=== PATIENT | male | born 1980 | race African-American/Black ===

== ENCOUNTER 2025-01-01 15:21 | Inpatient (IN) | payer OTHER, SELFPAY ==
[2025-01-01] VITALS (9 sets, daily range): BP systolic 132–206; BP diastolic 84–129; PULSE 87–93; RESP 16–19; TEMP 36.9–37.1; O2SAT 94–98; BMI 39.5
--- OUTSIDE RECORDS SUMMARY | 2025-01-01 15:27 | XMS_ITS | Clinical Summary ---
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 Gender Identity Not on file Sexual Orientation Not on file Last Filed Vital Signs Vital Sign Reading Time Taken Comments Blood Pressure 138/75 12/02/2009 5:40 PM CDT Pulse 104 12/02/2009 5:40 PM CDT Temperature 36.2 C (97.2 F) 12/02/2009 5:40 PM CDT Respiratory Rate 18 12/02/2009 5:40 PM CDT Oxygen Saturation 100% 12/02/2009 5:40 PM CDT Inhaled Oxygen Concentration - - Weight 99.8 kg (220 lb) 12/02/2009 5:41 PM CDT Height 185.4 cm (6' 1 ) 12/02/2009 5:41 PM CDT Body Mass Index 29.03 12/02/2009 5:41 PM CDT Plan of Treatment Health Maintenance Due Date Last Done Comments CT Colonography 1979 FIT Test 1979 FIT-DNA Test 1979 FLEXIBLE SIGMOIDOSCOPY 1979 HEPATITIS C SCREENING 1979 TDAP/TD VACCINE (1 - Tdap) 10/29/1990 DEPRESSION SCREENING 1991 HIV SCREENING 10/29/1994 DIABETES SCREENING 03/29/2014 COLONOSCOPY 10/29/2024 COLORECTAL CANCER SCREENING 10/29/2024 COVID-19 VACCINE (1 - 2023-2 5 season) 2024 INFLUENZA VACCINE (#1) 2024 ZOSTER SERIES VACCINE (1 of 2) 10/29/2029 Adult RSV VACCINE (1 - 1-dos e 75+ series) 10/29/2054 Pneumococcal Vaccine: Childh ood and At-Risk Adult <65 yo Series Aged Out No longer el igible based on patient's age to complete this topic Care Teams Pharmacy Cashier Relationship Specialty Start Date End Date No, Pcp PCP - General 12/02/09 Ayala Salazar R.N. 01/10/10
--- OUTSIDE RECORDS SUMMARY | 2025-01-01 15:27 | XMS_ITS | Clinical Summary ---
Author Organization [facility] Address [address] [place] [id number] Care Team Providers Care Metabolic Specialist Name Role Phone Unavailable Primary Care Provider Unavailabl e Allergies No known active allergies Medications No known medications Medical History Medical History Date Comments Essential (primary) hypertension Social History Tobacco Use Types Packs/Day Years Used Date Smoking Tobacco: Never Smokeless Tobacco: Never Tobacco Cessation:Counseling Given: Not Answered Alcohol Use Standard Drinks/Week Comments Not Currently 0 (1 standard drink = 0.6 oz pur e alcohol) Inadequate Housing Answer Date Recorded Social Determinants: Housing (Overall Score Help er) 0 06/30/2023 Sex and Gender Information Value Date Recorded Sex Assigned at Not on file Legal Sex Male 6:56 AM CDT Gender Identity Not on file Sexual Orientation Not on file Obstetrics History Last Filed Vital Signs Vital Sign Reading Time Taken Comments Blood Pressure 173/124 06/30/2023 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 Pulse 95 06/30/2023 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 Temperature 36.4 C (97.6 F) 06/30/2023 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 Respiratory Rate 18 06/30/2023 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 Oxygen Saturation 100% 06/30/2023 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 Inhaled Oxygen Concentration - - Weight - - Height - - Body Mass Index - - Plan of Treatment Health Maintenance Due Date Last Done Comments A1c for Diabetes Screening 1979 Depression Screening 1991 Varicella Vaccine (1 of 2 - 13+ 2-dose series) 10/29/1992 Hepatitis B Vaccine (1 of 3 - 19+ 3-dose series) 10/29/1998 CT Colonography 10/29/2024 Cologuard 10/29/2024 Colonoscopy 10/29/2024 Colorectal Cancer Screening 10/29/2024 Fecal Occult Blood 10/29/2024 Sigmoidoscopy 10/29/2024 COVID-19 Vaccine (2023-25 season) 2024 Influenza Vaccine (#1) 2024 DTaP/Tdap/Td Vaccine (4 - Td or Tdap) 08/29/2025 08/30/2015, 12/02/2009, 12/02/2009, Additional history exists HPV Vaccine (No Doses Required) Completed Hepatitis A Vaccine Aged Out No longe r eligible based on patient's age to complete this topic Meningococcal Serogroup B Vaccine Aged Out No longer eligible based on patient's age to complete this topic Meningococcal Vaccine Aged Out No odette cait eligible based on patient's age to complete this topic Pneumococcal Vaccine 0-49 Aged Out No longer eligible based on patient's age to complete this topic Insurance [facility] Member Subscriber Plan / Payer (Ef fective 2023-Present) Name:Sobeida Ceja Relation to Subscriber:Self Name:Sobeida Ceja Payer ID:Not on file Group ID:Not on file Type:[id number] HMO Address: [address] [address]
--- OUTSIDE RECORDS SUMMARY | 2025-01-01 15:27 | XMS_ITS | Encounter Summary ---
Author Organization [facility] Address [address] [place] [address] Care Team Providers Care Intern Product Marketing Manager Name Role Phone No, Pcp Primary Care Provider Unavailabl e Ayala Salazar R.N. 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 01/10/10 documented as of this encounter
--- NOTE | 2025-01-01 15:42 | XR_ITS ---
WS: [id number] Portable AP upright chest, 01/01/2025 Clinical Data: hypertension Comparison: None. Findings: No nodules, masses or effusions are seen. The heart is normal. The pulmonary vascularity is not increased. No pneumonia or pneumothorax is seen. XR/XR chest 1V portable [id number] Impression: Negative chest.
--- NOTE | 2025-01-01 15:42 | ECG_ITS ---
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 Measurements Intervals [place] Rate: 92 P: 69 ME: 195 QRS: 18 QRSD: 93 T: 38 QT: 351 QTc: 435 Interpretive Statements SINUS RHYTHM NONSPECIFIC T-WAVE ABNORMALITY No previous ECG available for comparison Electronically Signed On 01-01-2025 20:16:54 CDT by Mateo Douglas M.D. [id number]
--- NOTE | 2025-01-01 15:50 | W.ED.GENADLT ---
HPI - General Adult General: Chief complaint: General Medical Stated complaint: hypertension Time Seen by Provider: 01/01/25 15:26 History of Present Illness: 44-year-old man with a history of hypertension who presents emergency room by ambulance from clinic with accelerated hypertension. Says he is been having a toothache that caused a headache that caused his blood pressure to go up. He says when this happens his blood pressure usually goes up. They checked his blood pressure 5 times and it was over 200 at the clinic so they called an ambulance. No focal motor deficits. No altered mental status. No chest pain. There was up last night and he took extra of his blood pressure meds with no results. Related Data Allergies Allergy/AdvReac Type Severity Reaction Status Date / Time No Known Allergies Allergy Verified 01/01/25 15:29 Review of Systems Narrative: Constitutional symptoms: Negative except as documented in HPI. Skin symptoms: Negative except as documented in HPI. Eye symptoms: Negative except as documented in HPI. ENMT symptoms: Negative except as documented in HPI. Respiratory symptoms: Negative except as documented in HPI. Cardiovascular symptoms: Negative except as documented in HPI. Gastrointestinal symptoms: Negative except as documented in HPI. Genitourinary symptoms: Negative except as documented in HPI. Musculoskeletal symptoms: Negative except as documented in HPI. Neurologic symptoms: Negative except as documented in HPI. Psychiatric symptoms: Negative except as documented in HPI. Endocrine symptoms: Negative except as documented in HPI. Physical Exam Narrative: EXAM NARRATIVE: General: Alert, no acute distress. Skin: Warm, dry. Head: Normocephalic, atraumatic. Neck: Supple, trachea midline. Eye: Extraocular movements are intact. Ears, nose, mouth and throat: mucosa moist. Poor dentition. Multiple dental caries. Cardiovascular: Regular, Normal peripheral perfusion. Respiratory: Lungs are clear to auscultation, respirations are non-labored, breath sounds are equal, Symmetrical chest wall expansion. Gastrointestinal: Soft, Nontender, Non distended Musculoskeletal: Normal ROM, no deformity. Neurological: Alert and oriented, No focal neurological deficit observed. Psychiatric: Cooperative, appropriate mood & affect. Course Vital Signs: Vital signs: Vital Signs Temperature 98.7 F 01/01/25 15:20 Pulse Rate 90 01/01/25 15:20 Respiratory Rate 16 01/01/25 15:20 Blood Pressure 200/129 01/01/25 17:12 Pulse Oximetry 98 01/01/25 15:20 Oxygen Delivery Me thod Room Air 01/01/25 15:20 MDM - General Adult Medical Decision Making Medical decision making: Differential diagnosis including but not limited to and based on the above HPI, review of systems and physical exam: Patient presents with hypertension: Essential hypertension. Stroke. acute coronary syndrome. kidney failure. congestive heart failure. anxiety. Orders placed to evaluate differential diagnosis based on the above differential, HPI and physical exam EKG: Time 1532. Rate 92. Normal sinus rhythm, nonspecific ST wave abnormality, no ectopy, normal KS & QRS intervals, This was reviewed and interpreted by myself the ER physician at 1536 Chest x-ray: No acute process. No infiltrate. No pneumothorax. This was reviewed and interpreted by myself the emergency room physician. I also reviewed the radiology report. Lab Review: Laboratory results were reviewed and interpreted by myself the emergency room physician. No leukocytosis. No anemia. No renal failure. Initial troponin is negative. I reviewed the patient's medical record. Reexamination: Patient's dental pain is much improved after morphine. He continues to be quite elevated as far as his blood pressure goes even after treatment with clonidine and labetalol. I am starting a Cardene drip. Admitting to the hospitalist. Spoke with Dr. Hill who is on-call for the hospitalist service who agrees to admission. Assessment and plan: Accelerated hypertension Dental infection ?IV Cipro for dental infection. ?Morphine with good pain control and no control of his blood pressure. ?P.o. clonidine and then 20 mg IV labetalol with no improvement in blood pressure. -I discussed the patient with the hospitalist on-call who is admitting the patient. - Discussed findings and plan with patient. Answered any questions. - All laboratory values were reviewed and interpreted personally by myself, the ER physician - All imaging was reviewed and interpreted personally by myself, the ER physician. - Evaluation and treatment of this problem were appropriate in the emergency setting Lab Data 01/01/25 16:20 01/01/25 16:20 Radiology Impressions Chest X-Ray 01/01/25 15:42 Impression: Negative chest. Laboratory Results WBC 8.30 10^3/uL (3.29-11.43) 01/01/25 16:20 RBC 4.97 10^6/uL (3.85-5.65) 01/01/25 16:20 Hgb 14.60 g/dL (11.27-16.99) 01/01/25 16:20 Hct 41.4 % (37-53) 01/01/25 16:20 MCV 83.3 fl (82-101) 01/01/25 16:20 MCH 29.4 pg (27-33) 01/01/25 16:20 MCHC 35.3 g/dL (30-55) 01/01/25 16:20 RDW 13.0 % (12.1-15.1) 01/01/25 16:20 Plt Count 52 10^3/cmm (157-399) L 01/01/25 16:20 MPV 12.6 fL (7.4-10.4) H 01/01/25 16:20 Neut % (Auto) 71.7 % 01/01/25 16:20 Lymph % (Auto) 16.6 % 01/01/25 16:20 [place] % (Auto) 8.2 % 01/01/25 16:20 Eos % (Auto) 1.2 % 01/01/25 16:20 Baso % (Auto) 0.5 % 01/01/25 16:20 Neut # (Auto) 5.95 10^3/uL (1.8-7.7) 01/01/25 16:20 Lymph # (Auto) 1.4 10^3/uL (0.8-4.8) 01/01/25 16:20 [place] # (Auto) 0.7 10^3/uL (0.2-0.9) 01/01/25 16:20 Eos # (Auto) 0.1 10^3/uL (0.0-0.8) 01/01/25 16:20 Baso # (Auto) 0.0 10^3/uL (0.0-0.1) 01/01/25 16:20 Nucleated RBC % (auto) 0 % 01/01/25 16:20 Nucleated RBCs # 0.0 /100WBC 01/01/25 16:20 Sodium 138 mmol/L (136-145) 01/01/25 16:20 Potassium 3.8 mmol/L (3.5-5.1) 01/01/25 16:20 Chloride 98 mmol/L (98-107) 01/01/25 16:20 Carbon Dioxide 26 mmol/L (22-29) 01/01/25 16:20 Anion Gap 17.8 (5-19) 01/01/25 16:20 BUN 8 mg/dL (6-20) 01/01/25 16:20 Creatinine 1.0 mg/dL (0.7-1.2) 01/01/25 16:20 GFR Calculation 97.8 mL/min (90-130) 01/01/25 16:20 Glucose 131 mg/dL (65-115) H 01/01/25 16:20 Calculated Osmolality 286 mOsm/kg (285-295) 01/01/25 16:20 Calcium 10.0 mg/dL (8.5-10.5) 01/01/25 16:20 Total Bilirubin 0.8 mg/dL (0.15-1.2) 01/01/25 16:20 AST 25 U/L (0-40) 01/01/25 16:20 ALT 33 U/L (0-41) 01/01/25 16:20 Alkaline Phosphatase 66 U/L (40-130) 01/01/25 16:20 Troponin T Baseline 14 ng/L (0-15) 01/01/25 16:20 NT-Pro-B Natriuret Pep 75 pg/mL (0-125) 01/01/25 16:20 Total Protein 8.0 g/dL (6.6-8.7) 01/01/25 16:20 Albumin 4.7 g/dL (3.5-5.2) 01/01/25 16:20 Globulin 3.3 g/dL (1.3-4.6) 01/01/25 16:20 All radiology interpretation(s) finalized by discharge Discharge Plan Discharge Patient Disposition: Admitted As Inpatient Clinical Impression: Malignant hypertension, Dental infection, Headache Condition: Stable Coding Level of Care Code ED Russian Language Instructor for Franca Belcher
[2025-01-01 16:29] LABS: Hematocrit 41.4 % (37-53); Hemoglobin 14.60 g/dL (11.27-16.99); Mean Corpuscular HGB Conc 35.3 g/dL (30-55); Mean Corpuscular Hemoglobin 29.4 pg (27-33); Mean Corpuscular Volume 83.3 fl (82-101); Nucleated Red Blood Cells % 0 %; Platelet Count 52 10^3/cmm (157-399); Red Blood Count 4.97 10^6/uL (3.85-5.65); White Blood Count 8.30 10^3/uL (3.29-11.43)
[2025-01-01 16:53] LABS: Troponin(5th) Baseline 14 ng/L (0-15)
[2025-01-01 17:13] LABS: Alanine Aminotransferase 33 U/L (0-41); Albumin Level 4.7 g/dL (3.5-5.2); Alkaline Phosphatase 66 U/L (40-130); Anion Gap 17.8 (5-19); Aspartate Amino Transferase 25 U/L (0-40); Blood Urea Nitrogen 8 mg/dL (6-20); Calcium 10.0 mg/dL (8.5-10.5); Carbon Dioxide 26 mmol/L (22-29); Chloride 98 mmol/L (98-107); Creatinine Clr Calc Pharmacy 135.0731; Globulin 3.3 g/dL (1.3-4.6); Glucose 131 mg/dL (65-115); NT Pro B Type Natriuretic Pept 75 pg/mL (0-125); Osmolality Calculated 286 mOsm/kg (285-295); Potassium 3.8 mmol/L (3.5-5.1); Sodium 138 mmol/L (136-145); Total Protein 8.0 g/dL (6.6-8.7)
[2025-01-01] MEDS: ondansetron 2 mg/ML SDV 2 mL 4 MG IVP (17:16)
[2025-01-01] MEDS: morphine 4 mg/mL SDV 1 mL IVP (17:16)
[2025-01-01] MEDS: labetalol 5 mg/mL SDV 20mL 20 MG IVP (17:29)
--- NOTE | 2025-01-01 17:44 | ECG_ITS ---
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 Measurements Intervals [place] Rate: 86 P: 59 SC: 189 QRS: 14 QRSD: 101 T: 24 QT: 348 QTc: 418 Interpretive Statements SINUS RHYTHM Compared to ECG 01/01/2025 15:32:51 T-wave abnormality no longer present Electronically Signed On 01-01-2025 20:26:50 CDT by Mateo Douglas M.D. [id number]
[2025-01-01] MEDS: nicardipine 20 MG/200 ML PREMIX 50 MG IV (18:05)
--- NOTE | 2025-01-01 18:08 | CTR_ITS ---
PROCEDURE INFORMATION: Exam: CT Maxillofacial With Contrast; Mandible Exam date and time: 01/01/2025 6:49 PM Age: 44 years old Clinical indication: Jaw pain; Prior surgery; Surgery date: 6+ months; Surgery type: Dental implant; C/O diffuse dental/mandibular pain with hypertension. ; Additional info: Headache, tooth pain TECHNIQUE: Imaging protocol: Computed tomography maxillofacial with intravenous contrast. Exam focused on the mandible. 342 image(s) are submitted. Radiation optimization: All CT scans at this facility use at least one of these dose optimization techniques: automated exposure control; mA and/or kV adjustment per patient size (includes targeted exams where dose is matched to clinical indication); or iterative reconstruction. Contrast material: OMNI 350; Contrast volume: 100 ml; Contrast route: INTRAVENOUS (IV); COMPARISON: CT head wo con* [id number] 01/01/2025 6:47 PM RADIATION DOSE METRICS: Total DLP (mGy-cm): 638.24 FINDINGS: Bones: See Teeth finding. Soft tissues: Unremarkable. Teeth: There is extensive dental disease with many missing tooth components. The left-sided 1st molar dental implant demonstrate significant adjacent lucencies, may suggest loosening of the implant. Probable periapical abscess measuring 1.1 cm in diameter along the apex of the 1st premolar of the right-sided maxilla seen on image number 41/4. Dental evaluation is recommended. Mucosal thickening of bilateral maxillary sinus, may be secondary to chronic underlying dental infection. Bilateral temporomandibular joints are unremarkable. CT/CT facial bones w con [id number] IMPRESSION: There is extensive dental disease with many missing tooth components. The left-sided 1st molar dental implant demonstrate significant adjacent lucencies, may suggest loosening of the implant. Probable periapical abscess measuring 1.1 cm in diameter along the apex of the 1st premolar of the right-sided maxilla seen on image number 41/4. Dental evaluation is recommended. Mucosal thickening of bilateral maxillary sinus, may be secondary to chronic underlying dental infection. Bilateral temporomandibular joints are unremarkable.
--- NOTE | 2025-01-01 18:08 | CTR_ITS ---
PROCEDURE INFORMATION: Exam: CT Head Without Contrast Exam date and time: 01/01/2025 6:47 PM Age: 44 years old Clinical indication: Pain; Headache; ALMENDAREZ with hypertension; Additional info: Headache, HTN TECHNIQUE: Imaging protocol: Computed tomography of the head without contrast. 2 image(s) are submitted. Radiation optimization: All CT scans at this facility use at least one of these dose optimization techniques: automated exposure control; mA and/or kV adjustment per patient size (includes targeted exams where dose is matched to clinical indication); or iterative reconstruction. COMPARISON: No relevant prior studies available. RADIATION DOSE METRICS: Total DLP (mGy-cm): 1168.59 FINDINGS: Brain: Normal. No hemorrhage. Unremarkable white matter. No mass effect. Cerebral ventricles: No ventriculomegaly. Paranasal sinuses: Visualized sinuses are unremarkable. No fluid levels. Mastoid air cells: Visualized mastoid air cells are well aerated. Bones: Unremarkable. No acute fracture. Soft tissues: Unremarkable. CT/CT head wo con* [id number] IMPRESSION: No acute intracranial abnormality.
[2025-01-01] MEDS: iohexol 350 mg/mL 500 mL Btl (per mL) IV (18:52)
[2025-01-01] MEDS: heparin 5,000 unit/mL INJ 1 mL 5000 UNIT SUBCUT (20:15)
--- NOTE | 2025-01-01 21:00 | PM.HP ---
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 He presented to the emergency room after he developed intense facial pain and then a headache. He states that he has had dental issues going on for about a week and more recently the pain has moved into his maxillary sinus. When he arrived at the emergency room he was noted to have a blood pressure of 200/129. He received labetalol, clonidine and was started on a nicardipine drip. With the above measures his blood pressure is currently better controlled at 132/84 mmHg. Headache is improved. He denies any chest pain dyspnea or palpitations. Patient has been having pain over the right first molar for about a week now but has been on the road and unable to visit with the dentist yet. Review of Systems General: Reports: 10 or more systems reviewed and unremarkable except in HPI and below Const: Denies: fever(s), chills or body aches Eyes: Denies: change in vision, blurry vision or photophobia ENMT: Reports: hoarseness; Denies: throat pain, enlarged tonsils, odynophagia or nasal congestion Card: Denies: chest pain, palpitations, irregular heart rhythm, edema, swelling of feet/ankles, lightheadedness, pre-syncope, dyspnea on exertion or orthopnea Resp: Denies: dyspnea, productive cough, non-productive cough, wheezing, stridor, pain on inspiration, change in phlegm color, hemoptysis or chest congestion GI: Denies: abdominal pain, nausea, vomiting, hematemesis, coffee ground emesis, dysphagia, heartburn, diarrhea, constipation, GI cramping, change in stool character, hematochezia or melena : Denies: flank pain, dysuria, urinary frequency, urinary urgency, urinary hesitancy or hematuria Musc: Denies: neck pain, back pain, extremity pain, joint swelling, joint warmth or deformity Neuro: Denies: headache(s), numbness in extremities, weakness in extremities, sensory changes, difficulty walking, frequent falls, dizziness, vertigo, behavioral changes, Slurred speech present or seizure-like activity Psych: Denies: anxiety, depression, suicidal ideation or homicidal ideation Endo: Denies: polyuria, polydipsia, tired all the time, cold intolerance or hot flashes [place]/Lymph: Denies: easy bruising or easy bleeding Medications/Allergies Home Medications ?Medication ?Instructions ?Recorded ?Confirmed ?Last Taken ?Type acetaminophen 650 mg 650 mg PO Q4H PRN Pain, Mild 01/01/25 01/01/25 Unknown History tablet,extended release amlodipine 5 mg tablet 5 mg PO DAILY 01/01/25 01/01/25 Unknown History cholecalciferol (vitamin D3) 125 125 mcg PO DAILY 01/01/25 01/01/25 Unknown History mcg (5,000 unit) capsule dicyclomine 10 mg capsule 10 mg PO DAILY 01/01/25 01/01/25 Unknown History lisinopril 20 mg tablet 20 mg PO DAILY 01/01/25 01/01/25 Unknown History rosuvastatin 5 mg tablet 5 mg PO BEDTIME 01/01/25 01/01/25 Unknown History Allergies Allergy/AdvReac Type Severity Reaction Status Date / Time No Known Allergies Allergy Verified 01/01/25 15:29 Vitals/I&O/Wt Last Vital Signs Temp 98.4 F 01/01/25 20:00 Pulse 89 01/01/25 20:00 Resp 16 01/01/25 20:00 BP 132/84 01/01/25 20:00 Pulse Ox 94 01/01/25 20:00 O2 Del Method Room Air 01/01/25 20:00 01/01/25 01/01/25 01/01/25 06:59 14:59 22:59 Intake Total 215 / 215 Balance 215 / 215 Weight last 48 hrs Weight 132.903 kg Weight 136.078 kg Physical Exam Narrative: General: No acute distress, AO x3 HEENT: PERRLA, pupils bilaterally equal and reactive, pallors not present Chest: Normal vesicular breath sounds, no added sounds, equal good air entry bilaterally CVS: S1-S2 regular, no murmurs, no tachycardia, no gallops, no rubs Abdomen: Soft, nontender, no organomegaly, bowel sounds present Neuro: No focal deficits, no facial deformity, AO x3, power 5/5 in all limbs Data 01/02/25 03:51 01/02/25 03:51 Other Labs: Radiology Impressions Chest X-Ray 01/01/25 15:42 Impression: Negative chest. Face CT 01/01/25 18:08 IMPRESSION: There is extensive dental disease with many missing tooth components. The left-sided 1st molar dental implant demonstrate significant adjacent lucencies, may suggest loosening of the implant. Probable periapical abscess measuring 1.1 cm in diameter along the apex of the 1st premolar of the right-sided maxilla seen on image number 41/4. Dental evaluation is recommended. Mucosal thickening of bilateral maxillary sinus, may be secondary to chronic underlying dental infection. Bilateral temporomandibular joints are unremarkable. Head CT 01/01/25 18:08 IMPRESSION: No acute intracranial abnormality. Laboratory Results WBC 7.51 10^3/uL (3.29-11.43) 01/02/25 03:51 RBC 4.60 10^6/uL (3.85-5.65) 01/02/25 03:51 Hgb 13.60 g/dL (11.27-16.99) 01/02/25 03:51 Hct 39.4 % (37-53) 01/02/25 03:51 MCV 85.7 fl (82-101) 01/02/25 03:51 MCH 29.6 pg (27-33) 01/02/25 03:51 MCHC 34.5 g/dL (30-55) 01/02/25 03:51 RDW 13.2 % (12.1-15.1) 01/02/25 03:51 Plt Count 59 10^3/cmm (157-399) L 01/02/25 03:51 MPV 14.0 fL (7.4-10.4) H 01/02/25 03:51 Neut % (Auto) 65.5 % 01/02/25 03:51 Lymph % (Auto) 20.5 % 01/02/25 03:51 [place] % (Auto) 11.2 % 01/02/25 03:51 Eos % (Auto) 0.8 % 01/02/25 03:51 Baso % (Auto) 0.5 % 01/02/25 03:51 Neut # (Auto) 4.92 10^3/uL (1.8-7.7) 01/02/25 03:51 Lymph # (Auto) 1.5 10^3/uL (0.8-4.8) 01/02/25 03:51 [place] # (Auto) 0.8 10^3/uL (0.2-0.9) 01/02/25 03:51 Eos # (Auto) 0.1 10^3/uL (0.0-0.8) 01/02/25 03:51 Baso # (Auto) 0.0 10^3/uL (0.0-0.1) 01/02/25 03:51 Nucleated RBC % (auto) 0 % 01/02/25 03:51 Nucleated RBCs # 0.0 /100WBC 01/02/25 03:51 Sodium 134 mmol/L (136-145) L 01/02/25 03:51 Potassium 3.5 mmol/L (3.5-5.1) 01/02/25 03:51 Chloride 98 mmol/L (98-107) 01/02/25 03:51 Carbon Dioxide 24 mmol/L (22-29) 01/02/25 03:51 Anion Gap 15.5 (5-19) 01/02/25 03:51 BUN 9 mg/dL (6-20) 01/02/25 03:51 Creatinine 1.0 mg/dL (0.7-1.2) 01/02/25 03:51 GFR Calculation 97.8 mL/min (90-130) 01/02/25 03:51 Glucose 133 mg/dL (65-115) H 01/02/25 03:51 Estimat Average Glucose 146 01/01/25 16:20 Hemoglobin A1c 6.7 % (4.0-6.0) H 01/01/25 16:20 Calculated Osmolality 279 mOsm/kg (285-295) L 01/02/25 03:51 Lactic Acid 2.4 mmol/L (0.5-2.2) H 01/01/25 19:50 Lactic Acid (Sepsis) 3.5 mmol/L (0.5-2.2) H 01/01/25 23:35 Calcium 9.8 mg/dL (8.5-10.5) 01/02/25 03:51 Phosphorus 3.4 mg/dL (2.5-4.5) 01/02/25 03:51 Magnesium 1.7 mg/dL (1.7-2.3) 01/02/25 03:51 Iron 44 ug/dL (59-158) L 01/01/25 19:50 TIBC 306 mcg/dl 01/01/25 19:50 % Saturation 14.3 % (20-50) L 01/01/25 19:50 Unsat Iron Binding 262 ug/dL (112-347) 01/01/25 19:50 Total Bilirubin 0.7 mg/dL (0.15-1.2) 01/02/25 03:51 AST 21 U/L (0-40) 01/02/25 03:51 ALT 27 U/L (0-41) 01/02/25 03:51 Alkaline Phosphatase 58 U/L (40-130) 01/02/25 03:51 Troponin T Baseline 14 ng/L (0-15) 01/01/25 16:20 Troponin T 120 Minute 14.44 ng/L (0-15) 01/01/25 19:50 Delta Troponin T 0.44 ABS# (0-10) 01/01/25 19:50 Troponin T Hi Sens 6Hr 14.33 ng/L (0-15) 01/01/25 22:00 Troponin T Hi Sens 6Hr Delta 0.33 ng/L (0-12) 01/01/25 22:00 NT-Pro-B Natriuret Pep 75 pg/mL (0-125) 01/01/25 16:20 Total Protein 7.5 g/dL (6.6-8.7) 01/02/25 03:51 Albumin 4.2 g/dL (3.5-5.2) 01/02/25 03:51 Globulin 3.3 g/dL (1.3-4.6) 01/02/25 03:51 Triglycerides 258 mg/dL (0-150) H 01/02/25 03:51 Cholesterol 158 mg/dL (0-200) 01/02/25 03:51 LDL Cholesterol, Calc 80 mg/dL (50-129) 01/02/25 03:51 HDL Cholesterol 26 mg/dL (60-100) L 01/02/25 03:51 LDL/HDL Ratio 3.08 RATIO (0.00-3.22) 01/02/25 03:51 Cholesterol/HDL Ratio 6.08 mg/dL (1.0-5.00) H 01/02/25 03:51 Vitamin B12 439 pg/mL (232-1245) 01/01/25 19:50 Procalcitonin 0.13 ng/mL (0-0.5) 01/02/25 03:51 TSH 1.65 uIU/mL (0.27-4.20) 01/01/25 19:50 A&P Assessment and plan 1. Uncontrolled hypertension: 2. Dental infection: 3. Thrombocytopenia: Plan: 44-year-old male with past medical history of hypertension chronically on amlodipine 5 mg daily and lisinopril 20 mg daily, came to the emergency room with a headache today. He was found to have elevated blood pressure over 200 systolic. He received IV labetalol and was started on a nicardipine drip. With this intervention his blood pressure is currently improved 132/84 Will adjust his home antihypertensive regimen. Increase Norvasc to 10 mg p.o. daily. Continue lisinopril 20 mg p.o. daily. Added carvedilol 12.5 mg p.o. twice daily and hydralazine 50 mg p.o. 3 times daily. With adjustment of oral medications, we will closely monitor his blood pressure trend through the night and attempt to wean off nicardipine drip. CT head without any acute intracranial events. Patient denies any chest pain. Troponin series unremarkable. Patient is noted to have a dental infection surrounding the first molar. No fever or leukocytosis at this time. No signs of sepsis. Start oral Augmentin 875 mg p.o. twice daily. Patient is encouraged to follow-up with dentist urgently upon returning home to [place]. He states he will not be staying within the area for us to give him a referral. Incidentally noted to have thrombocytopenia with platelet count of 52,000. Patient is unaware of any history of known thrombocytopenia. States he had blood work with his primary 3 months ago and was told that everything is normal. Differentials for the thrombocytopenia are broad at this time especially since no prior numbers are available to compare. This could be related to ITP versus recent viral infection versus more chronic infection such as HIV hepatitis, potentially liver cirrhosis, splenomegaly etc. Discussed some of the differentials with the patient and offered further testing for the thrombocytopenia. Patient again stated that he would like to return home to [place] today and prefers to do all work up with his primary care provider upon his return in the next 1 to 2 days. Discussed with the patient that he should see his primary care provider urgently upon returning home. PDMP PDMP Reviewed: Not Reviewed Attestations Medical Necessity Statement*: Greater than 2 midnight stay is anticipated Coding Level of Care Code Acute Code for Chg Fwd Diagnoses Uncontrolled hypertension I10 Dental infection K04.7 Thrombocytopenia D69.6
[2025-01-01 21:07] LABS: Procalcitonin 0.11 ng/mL (0-0.5); Thyroid Stimulating Hormone 1.65 uIU/mL (0.27-4.20); Vitamin B12 439 pg/mL (232-1245)
[2025-01-01 21:17] LABS: Troponin 5 2HR 14.44 ng/L (0-15); Troponin 5 2HR Delta 0.44 ABS# (0-10)
[2025-01-01 21:19] LABS: Iron 44 ug/dL (59-158); Lactic Sepsis W/Reflex 2.4 mmol/L (0.5-2.2); Total Iron Binding Capacity 306 mcg/dl; Unsaturated Iron Binding 262 ug/dL (112-347)
[2025-01-01 21:57] LABS: Reflex Lactate Order REFLEX LACTIC ORDERD
[2025-01-01 23:31] LABS: Troponin 5 6HR 14.33 ng/L (0-15); Troponin 5 6HR Delta 0.33 ng/L (0-12)
[2025-01-02] VITALS: BP 142/82; PULSE 88; RESP 15; TEMP 36.9; O2SAT 95
[2025-01-02 00:02] LABS: Lactic Acid level (Lactate) 3.5 mmol/L (0.5-2.2)
[2025-01-02 03:30] LABS: Estmated Average Glucose 146; Hemoglobin A1C 6.7 % (4.0-6.0)
[2025-01-02 03:37] VITALS: RESP 18
[2025-01-02] MEDS: morphine 4 mg/mL SDV 1 mL 2 MG IVP (03:37)
[2025-01-02 03:39] VITALS: BP 150/90; PULSE 89; RESP 19; TEMP 36.6; O2SAT 97
[2025-01-02 04:39] LABS: Hematocrit 39.4 % (37-53); Hemoglobin 13.60 g/dL (11.27-16.99); Mean Corpuscular HGB Conc 34.5 g/dL (30-55); Mean Corpuscular Hemoglobin 29.6 pg (27-33); Mean Corpuscular Volume 85.7 fl (82-101); Nucleated Red Blood Cells % 0 %; Platelet Count 59 10^3/cmm (157-399); Red Blood Count 4.60 10^6/uL (3.85-5.65); White Blood Count 7.51 10^3/uL (3.29-11.43)
[2025-01-02 04:51] LABS: Alanine Aminotransferase 27 U/L (0-41); Albumin Level 4.2 g/dL (3.5-5.2); Alkaline Phosphatase 58 U/L (40-130); Anion Gap 15.5 (5-19); Aspartate Amino Transferase 21 U/L (0-40); Blood Urea Nitrogen 9 mg/dL (6-20); Calcium 9.8 mg/dL (8.5-10.5); Carbon Dioxide 24 mmol/L (22-29); Chloride 98 mmol/L (98-107); Creatinine Clr Calc Pharmacy 134.9771; Globulin 3.3 g/dL (1.3-4.6); Glucose 133 mg/dL (65-115); Magnesium 1.7 mg/dL (1.7-2.3); Osmolality Calculated 279 mOsm/kg (285-295); Potassium 3.5 mmol/L (3.5-5.1); Sodium 134 mmol/L (136-145); Total Protein 7.5 g/dL (6.6-8.7)
[2025-01-02 05:00] LABS: Procalcitonin 0.13 ng/mL (0-0.5)
[2025-01-02 05:03] LABS: Cholesterol 158 mg/dL (0-200); HDL Cholesterol 26 mg/dL (60-100); Triglycerides 258 mg/dL (0-150)
[2025-01-02 06:07] LABS: Slide Review Slide Review Perform
[2025-01-02] MEDS: heparin 5,000 unit/mL INJ 1 mL 5000 UNIT SUBCUT (07:15)
[2025-01-02 08:00] VITALS: BP 136/69; PULSE 86; RESP 20; TEMP 36.2; O2SAT 96
--- NOTE | 2025-01-02 10:43 | P.DS_ITS ---
Discharge Providers Date of Admission: 01/01/25 18:22 Date of Discharge: January 02, 2025 Attending Provider at Admission: Ivan Hill MD Attending Provider at Discharge: Ivan Hill MD Diagnoses at Discharge Discharge Diagnosis 1. Uncontrolled hypertension: 2. Dental infection: 3. 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 He presented to the emergency room after he developed intense facial pain and then a headache. He states that he has had dental issues going on for about a week and more recently the pain has moved into his maxillary sinus. When he arrived at the emergency room he was noted to have a blood pressure of 200/129. He received labetalol, clonidine and was started on a nicardipine drip. With the above measures his blood pressure is currently better controlled at 132/84 mmHg. Headache is improved. He denies any chest pain dyspnea or palpitations. Patient has been having pain over the right first molar for about a week now but has been on the road and unable to visit with the dentist yet. Hospital Course Hospital Course Patient was admitted to the hospital further evaluation and management of hypertensive urgency. He was started on Cardene drip for a short while and his oral antihypertensives were adjusted. His blood pressures improved and Cardene drip has been off for more than 12 hours. He was found to have thrombocytopenia which is most likely in setting of chronic alcohol use though further workup was suggested but he refused as he would want to follow-up with his outpatient physician in [place] where he lives. He is been discharged in hemodynamically stable condition on adjusted antihypertensives with advised to continue checking his blood pressure daily at home maintain a blood pressure diary and follow with the PCP in 2 weeks for further adjustment of antihypertensive as needed. He is also being discharged on antibiotic for dental abscess. He should follow-up with dentist at the earliest. Echocardiogram was done though the results are awaited. Patient was eager to be discharged as he has to drive back to [place]. Physical Exam Narrative: General: No acute distress, AO x3 HEENT: PERRLA, pupils bilaterally equal and reactive, pallors not present Chest: Normal vesicular breath sounds, no added sounds, equal good air entry bilaterally CVS: S1-S2 regular, no murmurs, no tachycardia, no gallops, no rubs Abdomen: Soft, nontender, no organomegaly, bowel sounds present Neuro: No focal deficits, no facial deformity, AO x3, power 5/5 in all limbs Discharge Data Studies Completed and Pending Completed Studies During Hospitalization Category Date Time Status CT facial bones w con [id number] Stat Cat Scan 01/01/25 18:[address] head wo con* [id number] Stat Cat Scan 01/01/25 18:08 Completed XR chest 1V portable [id number] Stat Exams 01/01/25 15:42 Completed Pending at discharge Category Date Time Status Complete Blood Count w/Auto AM LABS Lab 01/03/25 04:00 Ordered Complete Blood Count w/Auto AM LABS Lab 01/04/25 04:00 Ordered Comprehensive Metabolic Panel AM LABS Lab 01/03/25 04:00 Ordered Comprehensive Metabolic Panel AM LABS Lab 01/04/25 04:00 Ordered Magnesium AM LABS Lab 01/03/25 04:00 Ordered Magnesium AM LABS Lab 01/04/25 04:00 Ordered Phosphorus AM LABS Lab 01/03/25 04:00 Ordered Phosphorus AM LABS Lab 01/04/25 04:00 Ordered CV. echo complete* [id number] Routine Ultrasound 01/02/25 19:33 Taken Radiology Impressions Chest X-Ray 01/01/25 15:42 Impression: Negative chest. Face CT 01/01/25 18:08 IMPRESSION: There is extensive dental disease with many missing tooth components. The left-sided 1st molar dental implant demonstrate significant adjacent lucencies, may suggest loosening of the implant. Probable periapical abscess measuring 1.1 cm in diameter along the apex of the 1st premolar of the right-sided maxilla seen on image number 41/4. Dental evaluation is recommended. Mucosal thickening of bilateral maxillary sinus, may be secondary to chronic underlying dental infection. Bilateral temporomandibular joints are unremarkable. Head CT 01/01/25 18:08 IMPRESSION: No acute intracranial abnormality. Laboratory Results WBC 7.51 10^3/uL (3.29-11.43) 01/02/25 03:51 RBC 4.60 10^6/uL (3.85-5.65) 01/02/25 03:51 Hgb 13.60 g/dL (11.27-16.99) 01/02/25 03:51 Hct 39.4 % (37-53) 01/02/25 03:51 MCV 85.7 fl (82-101) 01/02/25 03:51 MCH 29.6 pg (27-33) 01/02/25 03:51 MCHC 34.5 g/dL (30-55) 01/02/25 03:51 RDW 13.2 % (12.1-15.1) 01/02/25 03:51 Plt Count 59 10^3/cmm (157-399) L 01/02/25 03:51 MPV 14.0 fL (7.4-10.4) H 01/02/25 03:51 Neut % (Auto) 65.5 % 01/02/25 03:51 Lymph % (Auto) 20.5 % 01/02/25 03:51 [place] % (Auto) 11.2 % 01/02/25 03:51 Eos % (Auto) 0.8 % 01/02/25 03:51 Baso % (Auto) 0.5 % 01/02/25 03:51 Neut # (Auto) 4.92 10^3/uL (1.8-7.7) 01/02/25 03:51 Lymph # (Auto) 1.5 10^3/uL (0.8-4.8) 01/02/25 03:51 [place] # (Auto) 0.8 10^3/uL (0.2-0.9) 01/02/25 03:51 Eos # (Auto) 0.1 10^3/uL (0.0-0.8) 01/02/25 03:51 Baso # (Auto) 0.0 10^3/uL (0.0-0.1) 01/02/25 03:51 Nucleated RBC % (auto) 0 % 01/02/25 03:51 Nucleated RBCs # 0.0 /100WBC 01/02/25 03:51 Sodium 134 mmol/L (136-145) L 01/02/25 03:51 Potassium 3.5 mmol/L (3.5-5.1) 01/02/25 03:51 Chloride 98 mmol/L (98-107) 01/02/25 03:51 Carbon Dioxide 24 mmol/L (22-29) 01/02/25 03:51 Anion Gap 15.5 (5-19) 01/02/25 03:51 BUN 9 mg/dL (6-20) 01/02/25 03:51 Creatinine 1.0 mg/dL (0.7-1.2) 01/02/25 03:51 GFR Calculation 97.8 mL/min (90-130) 01/02/25 03:51 Glucose 133 mg/dL (65-115) H 01/02/25 03:51 Estimat Average Glucose 146 01/01/25 16:20 Hemoglobin A1c 6.7 % (4.0-6.0) H 01/01/25 16:20 Calculated Osmolality 279 mOsm/kg (285-295) L 01/02/25 03:51 Lactic Acid 2.4 mmol/L (0.5-2.2) H 01/01/25 19:50 Lactic Acid (Sepsis) 3.5 mmol/L (0.5-2.2) H 01/01/25 23:35 Calcium 9.8 mg/dL (8.5-10.5) 01/02/25 03:51 Phosphorus 3.4 mg/dL (2.5-4.5) 01/02/25 03:51 Magnesium 1.7 mg/dL (1.7-2.3) 01/02/25 03:51 Iron 44 ug/dL (59-158) L 01/01/25 19:50 TIBC 306 mcg/dl 01/01/25 19:50 % Saturation 14.3 % (20-50) L 01/01/25 19:50 Unsat Iron Binding 262 ug/dL (112-347) 01/01/25 19:50 Total Bilirubin 0.7 mg/dL (0.15-1.2) 01/02/25 03:51 AST 21 U/L (0-40) 01/02/25 03:51 ALT 27 U/L (0-41) 01/02/25 03:51 Alkaline Phosphatase 58 U/L (40-130) 01/02/25 03:51 Troponin T Baseline 14 ng/L (0-15) 01/01/25 16:20 Troponin T 120 Minute 14.44 ng/L (0-15) 01/01/25 19:50 Delta Troponin T 0.44 ABS# (0-10) 01/01/25 19:50 Troponin T Hi Sens 6Hr 14.33 ng/L (0-15) 01/01/25 22:00 Troponin T Hi Sens 6Hr Delta 0.33 ng/L (0-12) 01/01/25 22:00 NT-Pro-B Natriuret Pep 75 pg/mL (0-125) 01/01/25 16:20 Total Protein 7.5 g/dL (6.6-8.7) 01/02/25 03:51 Albumin 4.2 g/dL (3.5-5.2) 01/02/25 03:51 Globulin 3.3 g/dL (1.3-4.6) 01/02/25 03:51 Triglycerides 258 mg/dL (0-150) H 01/02/25 03:51 Cholesterol 158 mg/dL (0-200) 01/02/25 03:51 LDL Cholesterol, Calc 80 mg/dL (50-129) 01/02/25 03:51 HDL Cholesterol 26 mg/dL (60-100) L 01/02/25 03:51 LDL/HDL Ratio 3.08 RATIO (0.00-3.22) 01/02/25 03:51 Cholesterol/HDL Ratio 6.08 mg/dL (1.0-5.00) H 01/02/25 03:51 Vitamin B12 439 pg/mL (232-1245) 01/01/25 19:50 Folate 14.4 ng/mL (4.5-32.2) 01/02/25 03:51 Procalcitonin 0.13 ng/mL (0-0.5) 01/02/25 03:51 TSH 1.65 uIU/mL (0.27-4.20) 01/01/25 19:50 Vitals Last Vital Signs Temp 97.1 F L 01/02/25 08:00 Pulse 86 01/02/25 08:00 Resp 20 H 01/02/25 08:00 BP 136/69 01/02/25 08:00 Pulse Ox 96 01/02/25 08:00 O2 Del Method Room Air 01/02/25 08:00 Discharge Plan Discharge Patient Disposition: Home Condition: Stable Prescriptions: New carvedilol 12.5 mg Tablet 12.5 mg PO BID 30 Days Qty: 60 0RF amoxicillin-pot clavulanate 875-125 mg Tablet 1 tab PO Q12H 5 Days Qty: 10 0RF Continued lisinopril 20 mg Tablet 20 mg PO DAILY acetaminophen 650 mg Tablet Extended Release 650 mg PO Q4H PRN (Reason: Pain, Mild) cholecalciferol (vitamin D3) 125 mcg (5,000 unit) Capsule 125 mcg PO DAILY dicyclomine 10 mg Capsule 10 mg PO DAILY rosuvastatin 5 mg Tablet 5 mg PO BEDTIME Changed amlodipine 5 mg Tablet 10 mg PO DAILY 30 Days Qty: 60 0RF Discharge Order = DC NOW: Discharge Order (Routine); Ordered 01/02/25 Ordered By: Ivan Hill Discharge Diet: Cardiac Patient Instructions: Amoxicillin/Clavulanate Potassium (By mouth), Carvedilol (By mouth), Headache, Dental Abscess (GEN), Hypertensive Crisis (DC), Opioid Safety, Patient Portal & Maria Isabel Instructions Activity Restrictions/Additional Instructions: Please follow up with your primary care provider within 7-10 days. Also see your dentist as soon as possible. Discharge Attestations Time Spent in Discharge Care*: greater than 30 min Specific Discharge Activities: educating patient, educating and/or supporting family/caregiver, discussing with pcp/other providers, discussing with outsole caser/social workers/dc planners, documenting/other paperwork and evaluating patient/reviewing data Status at Discharge: Cognitive status at discharge: cognitively intact , Behavioral status at discharge: cooperative , Functional status at discharge: independent ambulation , Overall status at discharge: patient is back to baseline Quality Metrics Clinical Quality Measures [ No reported AMI, CVA or VTE this stay] Coding Level of Care Code 33882 Total time (in minutes) for Discharge: 65 Diagnoses Uncontrolled hypertension I10 Dental infection K04.7 Thrombocytopenia D69.6
[2025-01-02 12:00] VITALS: BP 148/76; PULSE 85; RESP 20; TEMP 36.8; O2SAT 96
[2025-01-02 12:23] VITALS: BP 116/68; PULSE 72; RESP 23; TEMP 36.2; O2SAT 94
--- NOTE | 2025-01-02 19:33 | USCV_ITS ---
Sobeida Ceja Age: 44 Gender: M : 1980 Exam Date: 01/02/2025 09:00 Ordering Phys: Ivan Hill MD Technologist: Exam Location: [facility] [place] Indication: htn emerg BP: 132 / 69 HR: 81 Rhythm: Sinus Technical Quality: Adequate MEASUREMENTS (Male / Female) Normal Values 2D ECHO LV Diastolic Diameter PLAX 5.8 cm 4.2 - 5.9 / 3.9 - 5.3 cm IVS Diastolic Thickness 1.5 cm 0.6 - 1.0 / 0.6 - 0.9 cm IVS Systolic Thickness 2.2 cm LVPW Diastolic Thickness 1.5 cm 0.6 - 1.0 / 0.6 - 0.9 cm LVPW Systolic Thickness 2.4 cm LVOT Diameter 2.5 cm LV Ejection Fraction 2D Teich 71.3 % LV Ejection Fraction MOD 4C 62.6 % LV Ejection Fraction MOD 2C 64.1 % LV Ejection Fraction 2C AL 64.8 % LA Diameter 4.5 cm RA Systolic Volume 4C AL 34.2 ml RA Systolic Volume 4C MOD 31.8 ml Aorta at Sinotubular Diameter 3.2 cm IVC Diameter 1.7 cm M-MODE LA Ao Ratio MM 1.1 AV Cusp Separation MM 2.3 cm DOPPLER AV Peak Velocity 131.0 cm/s LVOT Peak Velocity 94.0 cm/s AV Area Cont Eq vti 4.3 cm squared AV Area Cont Eq pk 3.6 cm squared MV Peak Velocity 87.0 cm/s MV Area PHT 6.0 cm squared Mitral E to A Ratio 0.9 TV Peak Velocity 163.0 cm/s TR Peak Velocity 182.0 cm/s TR Peak Gradient 13.2 mmHg TV Peak E Velocity 78.0 cm/s PV Peak Velocity 98.0 cm/s FINDINGS Left Ventricle Normal left ventricular size and systolic function, EF 60-65%. No regional wall motion abnormalities. Mild to moderate LVH Right Ventricle Normal right ventricular size and systolic function. Right Atrium Normal right atrial size. Left Atrium Normal left atrial size. Mitral Valve Structurally normal mitral valve. Trace mitral regurgitation. Aortic Valve Structurally normal aortic valve. No significant stenosis or regurgitation. Tricuspid Valve Insufficient TR jet to calculate RVSP Pulmonic Valve Not well visualized Pericardium Normal Aorta Normal in size IVC Not well visualized CONCLUSIONS LV systolic function is normal with EF of 60-65% Mild to moderate LVH Trace mitral regurgitation Sukh Cox MD (Electronically Signed) Final Date: 03 January 2025 11:42 S
== END 2025-01-02 12:53 | disposition home or self-care (01) | DRG 305 ==
LOC: ER 17:51 → CSU 18:22
PROVIDERS: Admitting Provider Student in an Organized Health Care Education/Training Program; Emergency Provider Emergency Medicine; Visit Provider Student in an Organized Health Care Education/Training Program
DX: I16.0 Hypertensive urgency (principal); I10 Essential (primary) hypertension; K04.7 Periapical abscess without sinus; D69.59 Other secondary thrombocytopenia; F10.10 Alcohol abuse, uncomplicated
CPT/HCPCS: 36415; 70450; 70487; 71045; 80053; 80061; 82607; 82746; 83036; 83540; 83550; 83605; 83735; 83880; 84100; 84145; 84443; 84484; 85025; 93005; 93306; 96365; 96367; 96372; 96375; 99285; J1644; J1885; J2270; J2404; J2405; J3490; J9999